=== PATIENT | male | born 2000 | race African-American/Black ===

== ENCOUNTER 2018-07-25 10:53 | Emergency (ER) | payer MEDICAID ==
--- NOTE | 2018-07-25 11:46 | ER Document Report ---
ED Medical Screen (RME) - General Chief Complaint: Abdominal Pain Stated Complaint: ABDOMINAL PAIN Time Seen by Provider: 07/25/18 11:43 Mode of Arrival: Ambulatory Information source: Patient Notes: 17-year-old male presented to ED for upper abdominal pain. He went to his doctor for having indigestion upper abdominal pain on 19 July. They started him on omeprazole. Patient states that he vomits every time he takes the medicine. He states the pain is not gotten any better. Is alert oriented respirations regular and unlabored speaking in full sentences. He does smoke about a pack a day drinks occasionally and does use marijuana. I have ordered lab work urine and upper abdominal ultrasound. I have greeted and performed a rapid initial assessment of this patient. A comprehensive ED assessment and evaluation of the patient, analysis of test results and completion of medical decision making process will be conducted by an additional ED providers. Dictation of this chart was performed using voice recognition software; therefore, there may be some unintended grammatical errors. TRAVEL OUTSIDE OF THE [place] IN LAST 30 DAYS: No - Related Data Allergies/Adverse Reactions: No Known Allergies Allergy (Verified 07/25/18 11:05) Physical Exam - Vital signs Vitals: Temp Pulse Resp BP Pulse Ox 98.1 F 68 20 115/66 98 07/25/18 11:07 07/25/18 11:07 07/25/18 11:07 07/25/18 11:07 07/25/18 11:07 Course - Vital Signs Vital signs: Temp Pulse Resp BP Pulse Ox 98.1 F 68 20 115/66 98 07/25/18 11:07 07/25/18 11:07 07/25/18 11:07 07/25/18 11:07 07/25/18 11:07
[2018-07-25] MEDS ORDERED: ONDANSETRON HCL INJ/PF 4 MG/2 ML SDV IV ONE (11:57)
[2018-07-25] MEDS ORDERED: RINGERS SOLUTION,LACTATED 1,000 ML IV ONE (11:57)
[2018-07-25 12:04] LABS: ABSOLUTE LYMPHOCYTES (AUTO) 1.1 10^3/uL (0.5-4.7); ABSOLUTE MONOCYTES (AUTO) 0.9 10^3/uL (0.1-1.4); ABSOLUTE NEUT (AUTO) 12.3 10^3/uL (1.7-8.2); BASOPHILS % (AUTO) 0.1 % (0-2); EOSINOPHILS % (AUTO) 0.3 % (0-6); HEMATOCRIT 43.9 % (37.9-51.0); HEMOGLOBIN 14.4 g/dL (13.5-17.0); LYMPHOCYTES % (AUTO) 7.3 % (13-45); MEAN CORPUSCULAR HEMOGLOBIN 30.3 pg (27.0-33.4); MEAN CORPUSCULAR HGB CONC 32.8 g/dL (32.0-36.0); MEAN CORPUSCULAR VOLUME 92 fl (80-97); MONOCYTES % (AUTO) 6.6 % (3-13); PLATELET COUNT 237 10^3/uL (150-450); RED BLOOD COUNT 4.75 10^6/uL (4.35-5.55); RED CELL DISTRIBUTION WIDTH 12.7 % (11.5-14.0); SEGMENTED NEUTROPHILS % (AUTO) 85.7 % (42-78); TOTAL CELLS COUNTED % (AUTO) 100 %; WHITE BLOOD COUNT 14.4 10^3/uL (4.0-10.5)
[2018-07-25 12:14] LABS: APPEARANCE,URINE CLEAR; BILIRUBIN,URINE NEGATIVE (NEGATIVE); COLOR,URINE YELLOW; GLUCOSE, URINE NEGATIVE (NEGATIVE); KETONES,URINE NEGATIVE (NEGATIVE); LEUKOCYTE ESTERASE,URINE NEGATIVE (NEGATIVE); NITRITE,URINE NEGATIVE (NEGATIVE); PROTEIN,URINE NEGATIVE (NEGATIVE); URINE SPECIFIC GRAVITY 1.029; UROBILINOGEN,URINE NEGATIVE mg/dL (<2.0)
[2018-07-25 12:27] LABS: ALANINE AMINOTRANSFERASE 22 U/L (10-40); ALBUMIN 4.5 g/dL (3.7-5.6); ALKALINE PHOSPHATASE 85 U/L (65-260); ANION GAP 9 (5-19); ASPARTATE AMINO TRANSFERASE 24 U/L (10-45); BILIRUBIN,DIRECT 0.1 mg/dL (0.0-0.4); BLOOD UREA NITROGEN 18 mg/dL (7-20); CALCIUM 9.5 mg/dL (8.4-10.2); CARBON DIOXIDE 28 mmol/L (22-30); CHLORIDE 103 mmol/L (98-107); GLUCOSE 91 mg/dL (75-110); LIPASE 52.8 U/L (23-300); POTASSIUM 4.3 mmol/L (3.6-5.0); SODIUM 139.8 mmol/L (137-145); TOTAL PROTEIN 7.1 g/dL (6.3-8.2)
[2018-07-25 12:34] LABS: URINE AMPHETAMINES SCREEN NEGATIVE; URINE BARBITURATES SCREEN NEGATIVE; URINE BENZODIAZEPINES SCREEN NEGATIVE; URINE COCAINE SCREEN NEGATIVE; URINE MARIJUANA (THC) SCREEN UNCONFIRMED POSITIVE; URINE METHADONE SCREEN NEGATIVE; URINE PHENCYCLIDINE SCREEN NEGATIVE
--- NOTE | 2018-07-25 12:43 | RADIOLOGY REPORT (SQ) ---
EXAM DESCRIPTION: U/S ABDOMEN LIMITED W/O DOP COMPLETED DATE/TIME: 07/25/2018 12:23 pm REASON FOR STUDY: upper abdominal pain nv COMPARISON: None. TECHNIQUE: Dynamic and static grayscale images acquired of the abdomen and recorded on PACS. Nirmalao lewis selected color Doppler and spectral images recorded. LIMITATIONS: None. FINDINGS: PANCREAS: Normal. LIVER: The liver measures 16.1 cm demonstrating normal echogenicity. LIVER VASCULATURE: Normal directional flow of the main portal vein and hepatic veins. GALLBLADDER: The gallbladder is normal. The gallbladder wall measures 2 mm. ULTRASOUND-DETECTED TORRES'S SIGN: Negative. INTRAHEPATIC DUCTS AND COMMON DUCT: CBD measures 4 mm. Intrahepatic ducts normal caliber. No filling defects. INFERIOR VENA CAVA: Normal flow. AORTA: The aorta is normal. The proximal aorta measures 1.8 cm in AP diameter. The mid abdominal a mariana measures 1.7 cm and distally 1.5 cm. RIGHT KIDNEY: The right kidney is normal measuring 11.9 cm. No hydronephrosis. Doppler flow noted. Right kidney measures 11.9 x 5.5 x 4.7 cm. IMPRESSION: Normal right upper quadrant ultrasound. TECHNICAL DOCUMENTATION: JOB ID: [id number] 2010 [employer]- All Rights Reserved Reading location - IP/workstation name: [email or web address]
[2018-07-25] MEDS ORDERED: FAMOTIDINE INJ/PF 20 MG/2 ML SDV IV ONE (13:23)
[2018-07-25] MEDS ORDERED: SUCRALFATE 1 GM TABLET PO ONE (13:23)
--- NOTE | 2018-07-25 13:37 | ER Document Report ---
ED General - General Chief Complaint: Abdominal Pain Stated Complaint: ABDOMINAL PAIN Time Seen by Provider: 07/25/18 11:43 Primary Care Provider: GARCIA BOWLES FNP-C [Primary Care Provider] - Follow up as needed EMILY MIRELES MD [ACTIVE STAFF] - Follow up as needed Mode of Arrival: Ambulatory Notes: RME Provider note: 17-year-old male presented to ED for upper abdominal pain. He went to his doctor for having indigestion upper abdominal pain on 19 July. They started him on omeprazole. Patient states that he vomits every time he takes the medicine. He states the pain is not gotten any better. Is alert oriented respirations regular and unlabored speaking in full sentences. He does smoke about a pack a day drinks occasionally and does use marijuana. I have ordered lab work urine and upper abdominal ultrasound. MY HPI: Patient states he has been having indigestion, acid, left-sided abdominal pain for the last 5 months. Patient states the last couple of days he feels as though it is gotten worse. States he was taking omeprazole but has been unable to take it due to 2 episodes of vomiting today. This is why patient presents to the emergency room. Patient is denying any chest pain, shortness of breath, diarrhea, fevers, vomiting blood, dark tarry stools. TRAVEL OUTSIDE OF THE [place] IN LAST 30 DAYS: No - Related Data Allergies/Adverse Reactions: No Known Allergies Allergy (Verified 07/25/18 11:05) Past Medical History - General Information source: Patient - Social History Smoking Status: Current Every Day Smoker Frequency of alcohol use: Occasional Drug Abuse: Marijuana Family History: Reviewed & Not Pertinent Patient has suicidal ideation: No Patient has homicidal ideation: No Renal/ Medical History: Denies: Hx Peritoneal Dialysis Review of Systems - Review of Systems Constitutional: denies: Fever EENT: No symptoms reported Cardiovascular: No symptoms reported Respiratory: No symptoms reported Gastrointestinal: See HPI Genitourinary: No symptoms reported Male Genitourinary: No symptoms reported Musculoskeletal: No symptoms reported Skin: No symptoms reported Hematologic/Lymphatic: No symptoms reported Neurological/Psychological: No symptoms reported Physical Exam - Vital signs Vitals: Temp Pulse Resp BP Pulse Ox 98.1 F 68 20 115/66 98 07/25/18 11:07 07/25/18 11:07 07/25/18 11:07 07/25/18 11:07 07/25/18 11:07 - Notes Notes: GENERAL: Alert, interacts well. No acute distress. HEAD: Normocephalic, atraumatic. EYES: Pupils equal, round, and reactive to light. Extraocular movements intact. ENT: Oral mucosa moist, tongue midline. NECK: Full range of motion. Supple. Trachea midline. LUNGS: Clear to auscultation bilaterally, no wheezes, rales, or rhonchi. No re spiratory distress. HEART: Regular rate and rhythm. No murmur ABDOMEN: Soft, no McBurney's point tenderness, no Nolasco sign noted. Non- distended. Bowel sounds present in all 4 quadrants. Generalized tenderness noted left upper quadrant and epigastric region EXTREMITIES: Moves all 4 extremities spontaneously. No edema, normal radial and dorsalis pedis pulses bilaterally. No cyanosis. BACK: no cervical, thoracic, lumbar midline tenderness. No saddle anesthesia, normal distal neurovascular exam. NEUROLOGICAL: Alert and oriented x3. Normal speech. cranial nerves II through XII grossly intact PSYCH: Normal affect, normal mood. SKIN: Warm, dry, normal turgor. No rashes or lesions noted. Course - Re-evaluation Re-evalutation: 07/25/18 13:34 Laboratory 07/25/18 07/25/18 07/25/18 11:52 11:52 11:52 WBC 14.4 H RBC 4.75 Hgb 14.4 Hct 43.9 MCV 92 MCH 30.3 MCHC 32.8 RDW 12.7 Plt Count 237 Seg Neutrophils % 85.7 H Lymphocytes % 7.3 L Monocytes % 6.6 Eosinophils % 0.3 Basophils % 0.1 Absolute Neutrophils 12.3 H Absolute Lymphocytes 1.1 Absolute Monocytes 0.9 Absolute Eosinophils 0.0 Absolute Basophils 0.0 Sodium 139.8 Potassium 4.3 Chloride 103 Carbon Dioxide 28 Anion Gap 9 BUN 18 Creatinine 0.83 Est GFR ( Amer) > 60 Est GFR (Non-Af Amer) > 60 Glucose 91 Calcium 9.5 Total Bilirubin 1.0 Direct Bilirubin 0.1 Neonat Total Bilirubin Not Reportable Neonat Direct Bilirubin Not Reportable Neonat Indirect Bili Not Reportable AST 24 ALT 22 Alkaline Phosphatase 85 Total Protein 7.1 Albumin 4.5 Lipase 52.8 Urine Color YELLOW Urine Appearance CLEAR Urine pH 7.0 Ur Specific [place] 1.029 Urine Protein NEGATIVE Urine Glucose (UA) NEGATIVE Urine Ketones NEGATIVE Urine Blood NEGATIVE Urine Nitrite NEGATIVE Urine Bilirubin NEGATIVE Urine Urobilinogen NEGATIVE Ur Leukocyte Esterase NEGATIVE Urine WBC (Auto) 1 Urine RBC (Auto) 1 Squamous Epi Cells Auto <1 Urine Mucus (Auto) RARE Urine Ascorbic Acid NEGATIVE Urine Opiates Screen Urine Methadone Screen Ur Barbiturates Screen Ur Phencyclidine Scrn Ur Amphetamines Screen U Benzodiazepines Scrn Urine Cocaine Screen U Marijuana (THC) Screen 07/25/18 11:52 WBC RBC Hgb Hct MCV MCH MCHC RDW Plt Count Seg Neutrophils % Lymphocytes % Monocytes % Eosinophils % Basophils % Absolute Neutrophils Absolute Lymphocytes Absolute Monocytes Absolute Eosinophils Absolute Basophils Sodium Potassium Chloride Carbon Dioxide Anion Gap BUN Creatinine Est GFR ( Amer) Est GFR (Non-Af Amer) Glucose Calcium Total Bilirubin Direct Bilirubin Neonat Total Bilirubin Neonat Direct Bilirubin Neonat Indirect Bili AST ALT Alkaline Phosphatase Total Protein Albumin Lipase Urine Color Urine Appearance Urine pH Ur Specific [place] Urine Protein Urine Glucose (UA) Urine Ketones Urine Blood Urine Nitrite Urine Bilirubin Urine Urobilinogen Ur Leukocyte Esterase Urine WBC (Auto) Urine RBC (Auto) Squamous Epi Cells Auto Urine Mucus (Auto) Urine Ascorbic Acid Urine Opiates Screen NEGATIVE Urine Methadone Screen NEGATIVE Ur Barbiturates Screen NEGATIVE Ur Phencyclidine Scrn NEGATIVE Ur Amphetamines Screen NEGATIVE U Benzodiazepines Scrn NEGATIVE Urine Cocaine Screen NEGATIVE U Marijuana (THC) Screen UNCONFIRMED POSITIVE Ultrasound left upper quadrant ordered by E provider. That is unremarkable. I discussed with patient use of Pepcid and Carafate for his continued indigestion feeling. I also discussed my suggestion for following up with a contact center specialist. Patient voices that he does not want to follow-up with a contact center specialist. States he does not want to have a camera put on his throat. I have discussed that there may be other treatment options and he should still follow-up with gastroenterology. Patient voices that he does not like hospitals or doctors and does not feel as though he will follow-up. Patient is hemodynamically stable, stable for discharge. - Vital Signs Vital signs: Temp Pulse Resp BP Pulse Ox 98.2 F 66 18 128/85 H 98 07/25/18 14:09 07/25/18 14:09 07/25/18 14:07/25/18 14:07/25/18 11:07 - Laboratory Result Diagrams: 07/25/18 11:52 07/25/18 11:52 Laboratory results interpreted by me: 07/25/18 11:52 WBC 14.4 H Seg Neutrophils % 85.7 H Lymphocytes % 7.3 L Absolute Neutrophils 12.3 H Discharge - Discharge Clinical Impression: Left upper quadrant pain Gastritis Qualifiers: Gastritis type: unspecified gastritis Chronicity: acute Gastritis bleeding: without bleeding Qualified Code(s): K29.00 - Acute gastritis without bleeding Condition: Stable Disposition: HOME, SELF-CARE Instructions: Gastritis ([facility]), Reflux Disease (GERD) ([facility]) Additional Instructions: As we discussed you have been seen and treated in the emergency department for exacerbation of your indigestion. I have given you prescriptions for a medicine called Pepcid and Carafate. Please take them as prescribed as this should help with your indigestion feeling. Please also take nausea medication as needed for nausea vomiting. It is also my suggestion that you follow-up with gastroenterology. Phone numbers will be provided in this packet. They can better evaluate your acid indigestion. Please make sure you follow-up with your primary care provider next 24 to 48 hours. Return to the emergency room for any other concerns. Prescriptions: Famotidine [Pepcid 40 mg Tablet] 40 mg PO BID #60 tablet Sucralfate [Carafate 1 gm Tablet] 1 gm PO QID #20 tablet Forms: Return to Work Referrals: GARCIA BOWLES FNP-C [Primary Care Provider] - Follow up as needed EMILY MIRELES MD [ACTIVE STAFF] - Follow up as needed
[2018-07-25 14:21] VITALS: BP 128/85
== END 2018-07-25 14:21 | disposition home or self-care (01) ==
LOC: ER 10:53
DX: K29.00 Acute gastritis without bleeding (principal); R10.12 Left upper quadrant pain; F17.200 Nicotine dependence, unspecified, uncomplicated
CPT/HCPCS: 99284; 96361; 96374; 96375; 36415; 83690; 85025; 80053; 81001; 80307; 76705; J3490; J2405; J7120; S0028